=== PATIENT | male | born 1995 | race Two or more races ===

== ENCOUNTER 2019-02-02 08:18 | Emergency (ER) | payer MEDICAID ==
[~2019-02-02] VITALS: Ht 172.7 cm; Wt 93.0 kg
[2019-02-02 08:32] VITALS: BP 165/85
[2019-02-02] MEDS ORDERED: KETOROLAC TROMETH 30 MG/ML 1ML VIAL IV ONE (09:00)
== END 2019-02-02 09:11 | disposition home or self-care (01) ==
LOC: ER 08:18 → EDBD 08:18 → ER 09:10
DX: S29.011A Strain of muscle and tendon of front wall of thorax, initial encounter (principal); S40.812A Abrasion of left upper arm, initial encounter; V43.52XA Car driver injured in collision with other type car in traffic accident, initial encounter; Y93.I9 Activity, other involving external motion; Y92.488 Other paved roadways as the place of occurrence of the external cause; Y99.8 Other external cause status
CPT/HCPCS: 71045; 73060; 96374; 99283; J1885

== ENCOUNTER 2019-06-27 11:52 | Emergency (ER) | payer MEDICAID ==
[~2019-06-27] VITALS: Ht 170.2 cm; Wt 95.3 kg
[2019-06-27 12:50] VITALS: BP 140/96
[2019-06-27 14:42] LABS: Urine Bacteria FEW /hpf (None Seen); Urine Blood Negative /uL (Negative); Urine Mucus FEW (None Seen); Urine Specific Gravity 1.024 (1.001-1.035); Urine WBC 1 /hpf (0 - 3)
== END 2019-06-27 14:04 | disposition home or self-care (01) ==
LOC: ER 11:52
DX: R21 Rash and other nonspecific skin eruption (principal); N48.89 Other specified disorders of penis
CPT/HCPCS: 81001

== ENCOUNTER 2020-11-12 21:47 | Emergency (ER) | payer SELFPAY ==
[~2020-11-12] VITALS: Ht 170.2 cm; Wt 95.3 kg
[2020-11-12 22:37] VITALS: BP 152/110
[2020-11-12] MEDS ORDERED: TETANUS-DIPTH-ACEL PERTUSSIS 0.5ML SYR Tdap IM ONE (23:00)
[2020-11-12] MEDS ORDERED: LIDOCAINE 1% HCL (LOCAL ANESTH.) INJ 20ML MDV ONE (23:26)
== END 2020-11-13 01:19 | disposition home or self-care (01) ==
LOC: ER 21:48
DX: S41.111A Laceration without foreign body of right upper arm, initial encounter (principal); X58.XXXA Exposure to other specified factors, initial encounter; Y93.9 Activity, unspecified; Y92.89 Other specified places as the place of occurrence of the external cause; Y99.8 Other external cause status
CPT/HCPCS: 12004; 73090; 90471; 90715; 99283; J2001

== ENCOUNTER 2020-12-02 03:20 | Emergency (ER) | payer SELFPAY ==
[2020-12-02 03:54] VITALS: BP 114/72
== END 2020-12-02 04:15 | disposition left against medical advice (07) ==
LOC: ER 03:20 → EDBD 03:20 → EDUNIT# 03:20 → ER 04:15
DX: Z53.21 Procedure and treatment not carried out due to patient leaving prior to being seen by health care provider